=== PATIENT | female | born 1975 | race Caucasian/White ===

== ENCOUNTER 2018-06-08 09:39 | Emergency (ER) | payer OTHER ==
[~2018-06-08] VITALS: Ht 162.6 cm; Wt 100.0 kg
[2018-06-08] MEDS ORDERED: XARELTO10 MG PO (10:27)
[2018-06-08 10:37] LABS: HEMATOCRIT 20.5 % (37.0-47.0); IMMATURE GRANULOCYTES 0.8 % (0.0-5.0); MEAN CELL VOLUME 92.8 fL CALC (80.0-100.0); MEAN CORPUSCULAR HGB 29.4 pG CALC (26.0-32.0); MEAN CORPUSCULAR HGB CONC 31.7 g/L CALC (32.0-36.0); NEUT# 5.15 thou/uL (2.00-7.15); RED BLOOD COUNT 2.21 mill/uL (4.20-5.60); RED CELL DISTRI WIDTH 14.6 % (11.5-15.5)
[2018-06-08 10:53] LABS: HEMOGLOBIN 6.5 g/dl (12.0-16.0)
[2018-06-08 11:09] LABS: ALBUMIN 3.8 g/dL (3.2-5.0); ALKALINE PHOSPHATASE 62 u/l (38-126); ANION GAP 11 (6-22 (CALC)); BILIRUBIN, TOTAL 0.2 mg/dL (0.0-1.4); BUN 13 mg/dL (7-17); BUN/CREATININE RATIO 20 (12-20 (CALC)); CARBON DIOXIDE 25 mmol/l (22-30); CHLORIDE 106 mmol/l (95-108); CREATININE 0.6 mg/dL (0.5-1.0); GFR > 60 ML/MIN (>=60 (CALC)); GFR FOR AFR.AMER. > 60 ML/MIN (>=60 (CALC)); LIPASE 80 u/l (23-300); SGOT/AST 30 u/l (14-36); SODIUM 138 mmol/l (137-146)
[2018-06-08 11:19] LABS: PROTHROMBIN TIME 10.1 SECONDS (9.0-12.5)
[2018-06-08 12:06] LABS: URINE BILIRUBIN - DIPSTICK NEGATIVE (NEGATIVE); URINE BLOOD DIPSTICK LARGE (NEGATIVE); URINE GLUCOSE - DIPSTICK NEGATIVE (NEGATIVE); URINE KETONE NEGATIVE (NEGATIVE); URINE LEUK ESTERASE NEGATIVE (NEGATIVE); URINE NITRITE - DIPSTICK NEGATIVE (Negative); URINE PROTEIN - DIPSTICK 30 mg/dL (NEG-TRACE); URINE UROBILINOGEN - DIPSTICK 0.2 E.U./dL (0.2)
[2018-06-08 12:08] LABS: URINE COLOR RED; URINE RBC 50-100 RBC/hpf (0-5)
[2018-06-08 12:30] VITALS: BP 124/76
[2018-06-08 12:43] VITALS: BP 124/76
== END 2018-06-08 12:42 | disposition short-term general hospital (02) | DRG 761 ==
LOC: ED 09:39
PROVIDERS: Family Medicine
PROC: 30233N1 Transfusion of Nonautologous Red Blood Cells into Peripheral Vein, Percutaneous Approach (ICD-10-PCS; principal; 2018-06-08)
DX: N92.0 Excessive and frequent menstruation with regular cycle (principal); Z86.718 Personal history of other venous thrombosis and embolism; Z86.711 Personal history of pulmonary embolism; Z79.01 Long term (current) use of anticoagulants
CPT/HCPCS: P9016